=== PATIENT | female | born 1975 | race Caucasian/White ===

== ENCOUNTER 2017-04-23 18:25 | Emergency (ER) | payer OTHER ==
[2017-04-23 20:24] VITALS: BP 125/76
== END 2017-04-23 20:24 | disposition home or self-care (01) ==
LOC: ED 18:25
DX: S00.511A Abrasion of lip, initial encounter (principal); S09.90XA Unspecified injury of head, initial encounter; S09.93XA Unspecified injury of face, initial encounter; X58.XXXA Exposure to other specified factors, initial encounter; Y93.64 Activity, baseball; Y99.8 Other external cause status; Y92.89 Other specified places as the place of occurrence of the external cause